=== PATIENT | male | born 1980 | race Caucasian/White ===

== ENCOUNTER 2017-08-28 23:35 | Emergency (ER) | payer SELFPAY ==
[~2017-08-28] VITALS: Ht 147.3 cm; Wt 52.2 kg
== END 2017-08-29 01:23 | disposition home or self-care (01) ==
LOC: ED 23:35
DX: S00.81XA Abrasion of other part of head, initial encounter (principal); F10.10 Alcohol abuse, uncomplicated; F17.200 Nicotine dependence, unspecified, uncomplicated; W22.8XXA Striking against or struck by other objects, initial encounter
CPT/HCPCS: 70450; 99284

== ENCOUNTER 2021-12-02 16:38 | Emergency (ER) | payer OTHER ==
[~2021-12-02] VITALS: Ht 147.3 cm; Wt 53.1 kg
[2021-12-02] MEDS ORDERED: PERCOCET 5-3251 EACH PO (19:13)
[2021-12-02] MEDS ORDERED: ONDANSETRON ODT4 MG PO (19:14)
== END 2021-12-02 20:38 | disposition home or self-care (01) ==
LOC: ED 16:38
DX: N20.1 Calculus of ureter (principal); F17.200 Nicotine dependence, unspecified, uncomplicated
CPT/HCPCS: 74176; 80048; 81001; 96372; 99284-25; J1885